=== PATIENT | female | born 1980 | race Caucasian/White ===

== ENCOUNTER 2019-02-10 14:08 | Emergency (ER) | payer BC ==
[~2019-02-10] VITALS: Ht 172.7 cm; Wt 78.0 kg
[2019-02-10] MEDS ORDERED: TRAM-355 PO (14:24)
[2019-02-10] MEDS ORDERED: DULO60CA44 PO (14:24)
[2019-02-10] MEDS ORDERED: SODIUM CHLORIDE 0.9% 1,000 ML IV ONE (14:45)
[2019-02-10] MEDS ORDERED: KETOROLAC TROMETHAMINE 30 MG/ML VIAL IVP ONE (14:45)
[2019-02-10] MEDS ORDERED: SODIUM CHLORIDE 0.9% 100 ML ONE (14:47)
[2019-02-10] MEDS ORDERED: IOVERSOL 350 MG/ML 100 ML VIAL ONE (14:47)
[2019-02-10 15:28] LABS: BASOPHILS % (AUTO) 0.3 % (0.0-2.0); EOSINOPHILS % (AUTO) 1.1 % (1.0-6.0); HEMATOCRIT 37.9 % (36-46); HEMOGLOBIN 12.3 g/dL (12.0-16.0); LYMPHOCYTES # (AUTO) 1.9 K/uL (1.0-4.8); LYMPHOCYTES % (AUTO) 28.8 % (22.0-44.0); MEAN CORPUSCULAR HEMOGLOBIN 28.9 pg (26.0-34.0); MEAN CORPUSCULAR HGB CONC 32.5 G/dL (31.0-37.0); MEAN CORPUSCULAR VOLUME 89 fL (80-100); MONOCYTES # (AUTO) 0.4 K/uL (0.1-1.0); MONOCYTES % (AUTO) 5.3 % (2.0-9.0); NEUTROPHILS # (AUTO) 4.3 K/uL (1.8-7.7); NEUTROPHILS % (AUTO) 64.5 % (40.0-70.0); PLATELET COUNT (AUTO) 238 K/uL (150-450); RED BLOOD CELL COUNT(AUTO) 4.26 MIL/uL (4.00-5.20); RED CELL DISTRIBUTION WIDTH 14.1 % (11.5-14.5)
[2019-02-10 15:39] LABS: ANION GAP 7 mmol/L (8-16); CALCIUM, TOTAL 9.5 mg/dL (8.8-10.5); CARBON DIOXIDE 30 mmol/L (22-29); CHLORIDE 100 mmol/L (98-107); CREATININE 0.78 mg/dL (0.60-1.30); GLOMERULAR FILTR. RATE CALC > 60 mL/min (>60); GLUCOSE,RANDOM 102 mg/dL (70-110); POTASSIUM 3.8 mmol/L (3.5-5.1); SODIUM SERUM 137 mmol/L (136-145); UREA NITROGEN, BLOOD 12 mg/dL (7-18)
[2019-02-10 15:50] LABS: ALANINE AMINOTRANSFERASE 21 U/L (12-78); ALBUMIN 3.8 g/dL (3.4-5.0); ALKALINE PHOSPHATASE 58 U/L (46-116); ASPARTATE AMINOTRANSFERASE 13 U/L (15-37); BILIRUBIN,TOTAL 0.2 mg/dL (0.1-1.0); HCG,QUANTITATIVE < 1 mIU/mL (0-6); LIPASE 153 U/L (73-393); TOTAL PROTEIN, SERUM 7.6 g/dL (6.4-8.2)
[2019-02-10] MEDS ORDERED: MORPHINE SULFATE 2 MG/ML SYRINGE IVP ONE (16:15)
[2019-02-10 17:20] VITALS: BP 119/71
[2019-02-10 17:34] LABS: APPEARANCE,URINE CLEAR (CLEAR); BILIRUBIN,URINE NEGATIVE (NEGATIVE); GLUCOSE, URINE (UA) NEGATIVE (NEGATIVE); KETONES,URINE NEGATIVE (NEGATIVE); LEUKOCYTE ESTERASE ,URINE SMALL (NEGATIVE); NITRATE,URINE NEGATIVE (NEGATIVE); OCCULT BLOOD,URINE NEGATIVE (NEGATIVE); PH,URINE 6.5 (5.0-8.0); PROTEIN,URINE NEGATIVE (NEGATIVE); UROBILINOGEN,URINE 0.2 mg/dL (<=1.0)
[2019-02-10 17:45] LABS: RBC,URINE None Seen /HPF (0-2)
[2019-02-10 17:46] LABS: BACTERIA,URINE Few /HPF (None Seen); SQUAMOUS EPITHELIAL CELL,UR Moderate /LPF (None Seen)
== END 2019-02-10 18:00 | disposition home or self-care (01) ==
LOC: EMS 14:09
DX: R10.31 Right lower quadrant pain (principal)
CPT/HCPCS: 36415; 74177; 76856; 80053; 81001; 83690; 84702; 85025; 96374; 96375; 99284; J1885; J2270; J7030; J7050; Q9967; 76830

== ENCOUNTER → 2019-11-12 | Outpatient (CLI) | payer OTHER ==
[~2019-11-12] MED LIST: DULO60CA44 PO; TRAM-355 PO
[2019-11-12 08:41] LABS: BASOPHILS % (AUTO) 0.4 % (0.0-2.0); EOSINOPHILS % (AUTO) 0.8 % (1.0-6.0); HEMATOCRIT 40.4 % (36-46); HEMOGLOBIN 13.3 g/dL (12.0-16.0); LYMPHOCYTES # (AUTO) 2.1 K/uL (1.0-4.8); LYMPHOCYTES % (AUTO) 29.9 % (22.0-44.0); MEAN CORPUSCULAR HEMOGLOBIN 28.7 pg (26.0-34.0); MEAN CORPUSCULAR HGB CONC 32.8 G/dL (31.0-37.0); MEAN CORPUSCULAR VOLUME 88 fL (80-100); MONOCYTES # (AUTO) 0.4 K/uL (0.1-1.0); MONOCYTES % (AUTO) 6.2 % (2.0-9.0); NEUTROPHILS # (AUTO) 4.4 K/uL (1.8-7.7); NEUTROPHILS % (AUTO) 62.7 % (40.0-70.0); PLATELET COUNT (AUTO) 259 K/uL (150-450); RED BLOOD CELL COUNT(AUTO) 4.62 MIL/uL (4.00-5.20); RED CELL DISTRIBUTION WIDTH 12.5 % (11.5-14.5)
[2019-11-12 09:25] LABS: ALANINE AMINOTRANSFERASE 20 U/L (12-78); ALBUMIN 4.3 g/dL (3.4-5.0); ALKALINE PHOSPHATASE 46 U/L (46-116); ANION GAP 8 mmol/L (8-16); ASPARTATE AMINOTRANSFERASE 10 U/L (15-37); BILIRUBIN,TOTAL 0.3 mg/dL (0.1-1.0); CALCIUM, TOTAL 9.1 mg/dL (8.8-10.5); CARBON DIOXIDE 28 mmol/L (22-29); CHLORIDE 102 mmol/L (98-107); CHOLESTEROL 175 mg/dL (131-200); CREATININE 0.73 mg/dL (0.60-1.30); GLOMERULAR FILTR. RATE CALC > 60 mL/min (>60); GLUCOSE,RANDOM 107 mg/dL (70-110); HDL CHOLESTEROL 59 mg/dL (40-60); LDL CHOL (CALC.) 97 mg/dL (0-130); POTASSIUM 4.1 mmol/L (3.5-5.1); SODIUM SERUM 138 mmol/L (136-145); THYROID STIMULATING HORMONE 2.18 uIU/mL (0.36-3.74); TRIGLYCERIDES 97 mg/dL (15-150); UREA NITROGEN, BLOOD 10 mg/dL (7-18)
== END | disposition home or self-care (01) ==
LOC: LABMN 08:17
PROVIDERS: ATTEND Internal Medicine Geriatric Medicine
DX: M54.9 Dorsalgia, unspecified (principal); R53.83 Other fatigue
CPT/HCPCS: 84443

== ENCOUNTER 2019-11-19 05:40 | Day surgery (SDC) | payer OTHER ==
[2019-11-17 13:50] LABS: BASOPHILS % (AUTO) 0.6 % (0.0-2.0); EOSINOPHILS % (AUTO) 0.6 % (1.0-6.0); HEMATOCRIT 36.5 % (36-46); HEMOGLOBIN 12.4 g/dL (12.0-16.0); LYMPHOCYTES # (AUTO) 2.1 K/uL (1.0-4.8); LYMPHOCYTES % (AUTO) 36.9 % (22.0-44.0); MEAN CORPUSCULAR HEMOGLOBIN 29.8 pg (26.0-34.0); MEAN CORPUSCULAR HGB CONC 33.9 G/dL (31.0-37.0); MEAN CORPUSCULAR VOLUME 88 fL (80-100); MONOCYTES # (AUTO) 0.3 K/uL (0.1-1.0); MONOCYTES % (AUTO) 5.4 % (2.0-9.0); NEUTROPHILS # (AUTO) 3.2 K/uL (1.8-7.7); NEUTROPHILS % (AUTO) 56.5 % (40.0-70.0); PLATELET COUNT (AUTO) 230 K/uL (150-450); RED BLOOD CELL COUNT(AUTO) 4.15 MIL/uL (4.00-5.20); RED CELL DISTRIBUTION WIDTH 12.4 % (11.5-14.5)
[2019-11-17 14:10] LABS: ALANINE AMINOTRANSFERASE 19 U/L (12-78); ALBUMIN 4.2 g/dL (3.4-5.0); ALKALINE PHOSPHATASE 48 U/L (46-116); ANION GAP 7 mmol/L (8-16); ASPARTATE AMINOTRANSFERASE 15 U/L (15-37); BILIRUBIN,TOTAL 0.3 mg/dL (0.1-1.0); CALCIUM, TOTAL 8.4 mg/dL (8.8-10.5); CARBON DIOXIDE 30 mmol/L (22-29); CHLORIDE 102 mmol/L (98-107); CREATININE 0.85 mg/dL (0.60-1.30); GLOMERULAR FILTR. RATE CALC > 60 mL/min (>60); GLUCOSE,RANDOM 95 mg/dL (70-110); POTASSIUM 3.5 mmol/L (3.5-5.1); SODIUM SERUM 139 mmol/L (136-145); TOTAL PROTEIN, SERUM 7.6 g/dL (6.4-8.2); UREA NITROGEN, BLOOD 8 mg/dL (7-18)
[~2019-11-19] VITALS: Ht 172.7 cm; Wt 73.6 kg
[~2019-11-19 05:40] MED LIST changes: +BACL10TA PO; -DULO60CA44 PO; +POTASSIUM IODIDE 5%/IODINE 10% SOLUTION 14 ML TP ONE; +RINGERS SOLUTION,LACTATED 1,000 ML IV ONE
[2019-11-19] MEDS ORDERED: BUPIVACAINE 0.25%/EPI 1:200,000/PF 10 ML VIAL ONE (06:42)
[2019-11-19] MEDS ORDERED: FERRIC SUBSULFATE SOLUTION 8 ML BOTTLE TP ONE (06:45)
[2019-11-19] MEDS ORDERED: MEPERIDINE-PF 25 MG/ML VIAL IVP PRN (07:45)
[2019-11-19] MEDS ORDERED: HYDROmorphone 2 MG/ML SYRINGE IVP PRN (07:45)
[2019-11-19] MEDS ORDERED: FentaNYL CITRATE-PF 100 MCG/2 ML VIAL IVP PRN (07:45)
[2019-11-19] MEDS ORDERED: OXYGEN THERAPY IH SCH (08:00)
[2019-11-19] MEDS ORDERED: ONDANSETRON HCL 4 MG/2 ML VIAL IVP ONE (12:00)
[2019-11-19] MEDS ORDERED: 0.9% SODIUM CHLORIDE 10 ML VIAL IVP ONE (12:00)
[2019-11-19] MEDS ORDERED: KETAMINE HCL 50 MG/ML 10 ML VIAL IVP ONE (12:00)
[2019-11-19] MEDS ORDERED: KETOROLAC TROMETHAMINE 60 MG/2 ML VIAL IM ONE (12:00)
[2019-11-19] MEDS ORDERED: FentaNYL CITRATE-PF 100 MCG/2 ML VIAL IVP ONE (12:00)
[2019-11-19] MEDS ORDERED: DEXAMETHASONE SOD PHOS 4 MG/ML VIAL IVP ONE (12:00)
[2019-11-19] MEDS ORDERED: MIDAZOLAM HCL 2 MG/2 ML VIAL IVP ONE (12:00)
== END 2019-11-19 09:45 | disposition home or self-care (01) ==
LOC: SURGERY 05:40 → EEVIPCON 07:30 → SURGERY 09:45
PROVIDERS: ATTEND Obstetrics & Gynecology
DX: N87.1 Moderate cervical dysplasia (principal); F32.9 Major depressive disorder, single episode, unspecified; Z79.899 Other long term (current) drug therapy; Z80.3 Family history of malignant neoplasm of breast; Z79.01 Long term (current) use of anticoagulants; R97.8 Other abnormal tumor markers
CPT/HCPCS: 36415 ×2; 57522; 80053; 84702; 85025; 85610; 85730; 86850; 86900; 86901; 87635; 88307; 88342; J1100; J1885; J2250; J2405; J3010; J3490 ×2; J7120

== ENCOUNTER 2020-02-02 08:28 | Emergency (ER) | payer OTHER ==
[~2020-02-02] VITALS: Ht 175.3 cm; Wt 70.0 kg
[~2020-02-02 08:28] MED LIST changes: -POTASSIUM IODIDE 5%/IODINE 10% SOLUTION 14 ML TP ONE; -RINGERS SOLUTION,LACTATED 1,000 ML IV ONE
[2020-02-02 08:57] VITALS: BP 119/88
== END 2020-02-02 09:54 | disposition home or self-care (01) ==
LOC: EMS 08:31
DX: R11.2 Nausea with vomiting, unspecified (principal); R19.7 Diarrhea, unspecified; R06.02 Shortness of breath; Z20.828 Contact with and (suspected) exposure to other viral communicable diseases; Z79.899 Other long term (current) drug therapy
CPT/HCPCS: 99283; U0003

== ENCOUNTER 2020-05-15 19:30 | Emergency (ER) | payer OTHER ==
[~2020-05-15] VITALS: Ht 172.7 cm; Wt 72.7 kg
[2020-05-15] MEDS ORDERED: DULO-8 PO (19:44)
[2020-05-15] MEDS ORDERED: TRAM50TA4 PO (19:44)
[2020-05-15 19:59] VITALS: BP 119/62
[2020-05-15 20:01] LABS: COVID AG,FIA SOURCE NASOPHARYNGEAL
== END 2020-05-15 21:33 | disposition home or self-care (01) ==
LOC: EMS 19:38
DX: Z11.59 Encounter for screening for other viral diseases (principal); Z79.899 Other long term (current) drug therapy; Z20.828 Contact with and (suspected) exposure to other viral communicable diseases
CPT/HCPCS: 87426

== ENCOUNTER → 2021-11-27 | Outpatient (CLI) | payer OTHER ==
[~2021-11-27] MED LIST changes: +DULO-113 PO; -TRAM-355 PO; +TRAM50TA4 PO
[2021-11-27 13:25] LABS: APPEARANCE,URINE CLEAR (CLEAR); BILIRUBIN,URINE NEGATIVE (NEGATIVE); GLUCOSE, URINE (UA) NEGATIVE (NEGATIVE); KETONES,URINE NEGATIVE (NEGATIVE); NITRATE,URINE NEGATIVE (NEGATIVE); OCCULT BLOOD,URINE NEGATIVE (NEGATIVE); PROTEIN,URINE NEGATIVE (NEGATIVE); SPECIFIC GRAVITIY, URINE 1.016 (1.003-1.030); UROBILINOGEN,URINE <=1.0 mg/dL (<=1.0)
[2021-11-27 14:52] LABS: LEUKOCYTE ESTERASE ,URINE SMALL (NEGATIVE)
[2021-11-27 14:53] LABS: BACTERIA,URINE None Seen /HPF (None Seen); RBC,URINE None Seen /HPF (0-2)
[2021-11-27 14:54] LABS: SQUAMOUS EPITHELIAL CELL,UR Few /LPF (None Seen)
[2021-11-28 07:07] LABS: HIV 1-2 SCREEN 4TH GEN W/RFLX Non Reactive (Non Reactive)
[2021-11-28 12:07] LABS: HEPATITIS C AB (EIA) <0.1 s/co ratio (0.0-0.9)
== END | disposition home or self-care (01) ==
LOC: LABMN 12:50
PROVIDERS: ATTEND Obstetrics & Gynecology
DX: Z11.3 Encounter for screening for infections with a predominantly sexual mode of transmission (principal); R10.2 Pelvic and perineal pain
CPT/HCPCS: 81001; 86592; 86803; 87086; 87340; 87389

== ENCOUNTER 2022-01-01 13:23 | Emergency (ER) | payer OTHER ==
[2022-01-01] MEDS ORDERED: BEBTELOVIMAB (EUA) 175 MG/2 ML VIAL IVP ONE ×2 (13:26→14:00)
[2022-01-01] MEDS ORDERED: BACL20TA PO (13:46)
[2022-01-01] MEDS ORDERED: SODIUM CHLORIDE 0.9% 1,000 ML IV ONE (14:00)
[2022-01-01 15:08] VITALS: BP 115/69
== END 2022-01-01 15:31 | disposition home or self-care (01) ==
LOC: EMS 13:25
DX: U07.1 COVID-19 (principal); Z79.899 Other long term (current) drug therapy
CPT/HCPCS: 96360; 99283; M0222; Q0222

== ENCOUNTER → 2022-07-26 | Outpatient (CLI) | payer OTHER ==
[~2022-07-26] MED LIST changes: -BACL10TA PO; +BACL20TA PO
[2022-07-26 08:43] LABS: BASOPHILS % (AUTO) 0.5 % (0.0-2.0); EOSINOPHILS % (AUTO) 0.9 % (1.0-6.0); HEMATOCRIT 37.4 % (36-46); HEMOGLOBIN 12.5 g/dL (12.0-16.0); LYMPHOCYTES % (AUTO) 31.5 % (22.0-44.0); MEAN CORPUSCULAR HGB CONC 33.6 G/dL (31.0-37.0); MEAN CORPUSCULAR VOLUME 90 fL (80-100); MONOCYTES # (AUTO) 0.3 K/uL (0.1-1.0); MONOCYTES % (AUTO) 5.2 % (2.0-9.0); NEUTROPHILS # (AUTO) 3.9 K/uL (1.8-7.7); NEUTROPHILS % (AUTO) 61.9 % (40.0-70.0); PLATELET COUNT (AUTO) 235 K/uL (150-450); RED BLOOD CELL COUNT(AUTO) 4.18 MIL/uL (4.00-5.20)
[2022-07-26 08:57] LABS: HEMOGLOBIN A1C 6.3 % (3.8-5.6)
[2022-07-26 09:06] LABS: ALANINE AMINOTRANSFERASE 30 U/L (12-78); ALBUMIN 3.7 g/dL (3.4-5.0); ALKALINE PHOSPHATASE 45 U/L (46-116); ANION GAP 4 mmol/L (8-16); ASPARTATE AMINOTRANSFERASE 18 U/L (15-37); BILIRUBIN,TOTAL 0.1 mg/dL (0.1-1.0); CALCIUM, TOTAL 8.9 mg/dL (8.8-10.5); CARBON DIOXIDE 32 mmol/L (22-29); CHLORIDE 103 mmol/L (98-107); CHOL/HDL RATIO 3.3 (3.9-5.7); CHOLESTEROL 206 mg/dL (131-200); CREATININE 0.78 mg/dL (0.60-1.30); GLOMERULAR FILTR. RATE CALC > 60 mL/min (>60); GLUCOSE,RANDOM 124 mg/dL (70-110); HDL CHOLESTEROL 63 mg/dL (40-60); LDL CHOL (CALC.) 132 mg/dL (0-130); POTASSIUM 4.7 mmol/L (3.5-5.1); SODIUM SERUM 139 mmol/L (136-145); THYROID STIMULATING HORMONE 1.74 uIU/mL (0.36-3.74); TOTAL PROTEIN, SERUM 7.4 g/dL (6.4-8.2); TRIGLYCERIDES 55 mg/dL (15-150); UREA NITROGEN, BLOOD 12 mg/dL (7-18)
[2022-07-26 09:52] LABS: ERYTHROCYTE SEDIMENTATION RATE 20 MM/HR (0-20)
== END | disposition home or self-care (01) ==
LOC: LABMN 08:23 → EEVIPCON 08:23
PROVIDERS: ATTEND Internal Medicine Geriatric Medicine
DX: R87.619 Unspecified abnormal cytological findings in specimens from cervix uteri (principal); N64.9 Disorder of breast, unspecified
CPT/HCPCS: 80053; 80061; 83036; 84443; 85025; 85651; 36415-L1; 36415-TC